=== PATIENT | female | born 1995 | race Caucasian/White ===

== ENCOUNTER 2017-03-08 20:48 | Emergency (ER) | payer BC ==
[2017-03-08 21:03] VITALS: BP 141/78; PULSE 94; RESP 18; TEMP 98.2
--- NOTE | 2017-03-08 21:44 | CT ---
EXAMINATION TYPE: CT brain wo con DATE OF EXAM: 03/08/2017 COMPARISON: NONE HISTORY: Right side head laceration after injury today. CT DLP: 769.3 mGycm. Automated Exposure Control for Dose Reduction was Utilized. TECHNIQUE: CT scan of the head is performed without contrast. FINDINGS: Ventricles of normal size. There is no mass effect nor midline shift. There is no sign of intracranial hemorrhage. The calvarium is intact. IMPRESSION: Negative CT scan of the brain..
--- NOTE | 2017-03-08 22:00 | ED ---
Head Injury HPI - General Chief complaint: Head Injury Stated complaint: fall-head lac Time Seen by Provider: 03/08/17 21:07 Source: patient, family, RN notes reviewed, old records reviewed Mode of arrival: ambulatory Limitations: no limitations - History of Present Illness Initial comments: Jesusita 21 year old female was walking from her bedroom into the hallway after taking a shower. She reports she slipped on the water, fell, and hit her head on the edge of the wall. She states that she split the front right side of her scalp open and there has been bleeding. Denies loss of consciousness, vision changes, neck pain, nausea, vomiting. PAtient states that her tetanus is up to date. Denies any other injury with the fall. Place: home - Related Data Home Medications Medication Instructions Recorded Confirmed No Known Home Medications [No 03/08/17 03/08/17 Known Home Medications] Allergies/Adverse reactions: Allergies Allergy/AdvReac Type Severity Reaction Status Date / Time Penicillins Allergy Rash/Hives Verified 03/08/17 21:09 Review of Systems ROS Statement: Those systems with pertinent positive or pertinent negative responses have been documented in the HPI. ROS Other: All systems not noted in ROS Statement are negative. Past Medical History Additional Past Medical History / Comment(s): eye infection History of Any Multi-Drug Resistant Organisms: None Reported Past Surgical History: No Surgical Hx Reported Past Psychological History: No Psychological Hx Reported Smoking Status: Never smoker Past Alcohol Use History: None Reported Past Drug Use History: None Reported General Exam - General Exam Comments Initial Comments: Jesusita 21 year old female. No distress. Limitations: no limitations General appearance: alert, in no apparent distress Head exam: Present: normocephalic, normal inspection. Absent: atraumatic (4 cm laceration over right frontal scalp. ) Eye exam: Present: normal appearance, PERRL, EOMI. Absent: scleral icterus, conjunctival injection, periorbital swelling ENT exam: Present: normal exam, mucous membranes moist Neck exam: Present: normal inspection. Absent: tenderness, meningismus, lymphadenopathy Respiratory exam: Present: normal lung sounds bilaterally. Absent: respiratory distress, wheezes, rales, rhonchi, stridor Cardiovascular Exam: Present: regular rate, normal rhythm, normal heart sounds. Absent: systolic murmur, diastolic murmur, rubs, gallop, clicks GI/Abdominal exam: Present: soft, normal bowel sounds. Absent: distended, tenderness, guarding, rebound, rigid Extremities exam: Present: normal inspection, full ROM, normal capillary refill. Absent: tenderness, pedal edema, joint swelling, calf tenderness Back exam: Present: normal inspection Neurological exam: Present: alert, oriented X3, CN II-XII intact Expanded Patient oriented to: Present: person, place, time Speech: Present: fluid speech Cranial nerves: EOM's Intact: Normal, Facial Sensation: Normal Cerebellar function: Finger to Nose: Normal Upper motor neuron: Pronator Drift: Normal Sensory exam: Upper Extremity Light Touch: Normal, Lower Extremity Light Touch: Normal Motor strength exam: RUE: 5, LUE: 5, RLE: 5, LLE: 5 Eye Response: (4) open spontaneously Motor Response: (6) obeys commands Verbal Response: (5) oriented [place] Total: 15 Psychiatric exam: Present: normal affect, normal mood Skin exam: Present: warm, dry, intact, normal color. Absent: rash Course Vital Signs 03/08/17 20:58 Temperature 98.2 F Pulse Rate 94 Respiratory 18 Rate Blood Pressure 141/78 O2 Sat by Pulse 100 Oximetry Procedures - Laceration Laceration #1 Indication: laceration Site: scalp Size (cm): 4 Description: linear Depth: simple, single layer Anesthetic Used: lidocaine 1% Anesthesia Technique: local infiltration Amount (mls): 6 Pre-repair: wound explored, irrigated extensively Type of Sutures: other (zahra) Number of Sutures: 5 Patient Tolerated Procedure: well, no complications Medical Decision Making - Medical Decision Making Pleasant 21 year old female was walking from her bedroom into the hallway after taking a shower. She reports she slipped on the water, fell, and hit her head on the edge of the wall. She states that she split the front right side of her scalp open and there has been bleeding. Patient deneis headache, loss of consciousness, or vomiting. Patient is neurologically intact. PAtient given CT brain, negative for any acute process. Patient laceration was closed with 5 zahra. Patient tolerated procedure well. Discussed head injury instructions and staple care instruction. Patient agrees to treatment plan and will comply. - Radiology Data Radiology results: report reviewed CT brain negative for any acute process. Disposition Clinical Impression: Scalp laceration, Head injury Disposition: HOME SELF-CARE Condition: Good Instructions: Concussion (ED), Head Injury (ED) Additional Instructions: Please return to the emergency room in 10 days to have zahra removed. Please use clean soap and water to clean the suture area to prevent scabbing over the top of your zahra. Please watch for any signs of infection which may include but not limited to increased pain, swelling, redness, fever or chills. Please return to the emergency room if any signs of infection do occur. Please return to the emergency room for any other concerns or complications. Referrals: Nonstaff,Physician [Primary Care Provider] - 1-2 days Time of Disposition: 21:58
== END 2017-03-08 22:14 | disposition home or self-care (01) ==
LOC: EC 20:48
DX: S01.01XA Laceration without foreign body of scalp, initial encounter (principal); R40.2142 Coma scale, eyes open, spontaneous, at arrival to emergency department; R40.2252 Coma scale, best verbal response, oriented, at arrival to emergency department; R40.2362 Coma scale, best motor response, obeys commands, at arrival to emergency department; Z88.0 Allergy status to penicillin; W01.198A Fall on same level from slipping, tripping and stumbling with subsequent striking against other object, initial encounter; Y93.01 Activity, walking, marching and hiking; Y92.009 Unspecified place in unspecified non-institutional (private) residence as the place of occurrence of the external cause
CPT/HCPCS: 12002; 70450; 99284